=== PATIENT | female | born 1950 | race Caucasian/White ===

== ENCOUNTER 2016-10-27 13:43 | Observation (INO) | payer OTHER ==
[2016-10-27] MEDS ORDERED: NORMAL SALINE 500 ML IV ONE (13:58)
[2016-10-27] MEDS ORDERED: ONDANSETRON HCL INJ/PF 4 MG/2 ML SDV IV ONE (14:01)
--- NOTE | 2016-10-27 14:04 | ER Document Report ---
ED Medical Screen (RME) - General Chief Complaint: Nausea/Vomiting/Diarrhea Stated Complaint: NAUSEA TRAVEL OUTSIDE OF THE [place] IN LAST 30 DAYS: No - HPI Patient complains to provider of: nausea, Vomiting and diarrhea for 2 days Notes: 10/27/16 14:00 Diabetic female presents with now 2 days nausea vomiting diarrhea generalized malaise and weakness. Patient has been unable to tolerate anything by mouth. Patient states her sugars have been relatively well controlled for her not too high. Patient denies any fever, chills, chest pain, abdominal pain, leg swelling, dysuria - Related Data Allergies/Adverse Reactions: codeine [Codeine] Allergy (Unknown, Verified 10/27/16 13:48) Sulfa (Sulfonamide Antibiotics) Allergy (Unknown, Verified 10/27/16 13:48) Past Medical History - Social History Chew tobacco use (# tins/day): No Frequency of alcohol use: None Drug Abuse: None - Past Medical History Cardiac Medical History: Reports: Hx Hypertension Endocrine Medical History: Reports: Hx Diabetes Mellitus Type 2 Renal/ Medical History: Reports: Hx Kidney Stones. Denies: Hx Peritoneal Dialysis Past Surgical History: Reports: Hx Cholecystectomy, Hx Tonsillectomy Review of Systems - Review of Systems Gastrointestinal: Diarrhea, Nausea, Vomiting Physical Exam - Vital signs Vitals: Temp Pulse Resp BP Pulse Ox 99.7 F 122 H 20 130/84 H 93 10/27/16 13:48 10/27/16 13:48 10/27/16 13:48 10/27/16 13:48 10/27/16 13:48 - Respiratory Respiratory status: No respiratory distress Breath sounds: Normal - Cardiovascular Rhythm: Tachycardia - Abdominal Inspection: Normal Distension: No distension Bowel sounds: Normal Tenderness: Nontender Course - Vital Signs Vital signs: Temp Pulse Resp BP Pulse Ox 99.7 F 122 H 20 130/84 H 93 10/27/16 13:48 10/27/16 13:48 10/27/16 13:48 10/27/16 13:48 10/27/16 13:48
--- NOTE | 2016-10-27 14:47 | ER Document Report ---
ED GI/ - General Mode of Arrival: Ambulatory TRAVEL OUTSIDE OF THE [place] IN LAST 30 DAYS: No - HPI Patient complains to provider of: Diarrhea, Vomiting Onset: Other - Refer to HPI notes Associated symptoms: Lightheaded <FREDDIE COBOS - Last Filed: 10/27/16 15:27> <JEREMIAH JIM - Last Filed: 10/27/16 17:17> - General Chief Complaint: Nausea/Vomiting/Diarrhea Stated Complaint: NAUSEA Time Seen by Provider: 10/27/16 14:39 Notes: Patient is a 66 year old female presenting to the ED for nausea and vomiting. Patient states she started having snmptoms of nausea, chills, and possible fevers yesterday. Patient started vomiting today. Patient also complains of chronic diarrhea which was onset after her cholecystectomy. Patient denies any urinary symptoms or abdominal pain. Patient is a diabetic and states she took her blood glucose level this morning which was not too high but states her level after arriving here was high. Patient also states her blood pressure was 113/78 today. Patient has a history of diabetes mellitus, hypertension, tubal ligation, and cholecystectomy. Patient also had pancreatitis in 2010 which the cause was unfound. Patient is allergic to codeine and sulfa allergies. (FREDDIE COBOS) - Related Data Allergies/Adverse Reactions: codeine [Codeine] Allergy (Unknown, Verified 10/27/16 13:48) Sulfa (Sulfonamide Antibiotics) Allergy (Unknown, Verified 10/27/16 13:48) Home Medications: Current Home Medications Aspirin [Aspirin 81 mg Chewable Tablet] 81 mg PO DAILY 10/27/16 [History] Dulaglutide [Trulicity] 1.5 mg SQ Q7D 10/27/16 [History] Lisinopril/Hydrochlorothiazide [Lisinopril-Hctz 20-12.5 mg Tab] 1 tab PO DAILY 10/27/16 [History] Metformin HCl 500 mg PO TID 10/27/16 [History] Past Medical History - General Information source: Patient - Social History Smoking Status: Never Smoker Cigarette use (# per day): No Chew tobacco use (# tins/day): No Frequency of alcohol use: None Drug Abuse: None Family History: None Patient has suicidal ideation: No Patient has homicidal ideation: No - Past Medical History Cardiac Medical History: Reports: Hx Hypertension Endocrine Medical History: Reports: Hx Diabetes Mellitus Type 2 Renal/ Medical History: Reports: Hx Kidney Stones Past Surgical History: Reports: Hx Cholecystectomy, Hx Tonsillectomy, Hx Tubal Ligation <FREDDIE COBSO - Last Filed: 10/27/16 15:27> Review of Systems - Review of Systems Constitutional: See HPI, Chills, Fever EENT: No symptoms reported Cardiovascular: No symptoms reported Respiratory: No symptoms reported Gastrointestinal: See HPI, Abdominal pain, Diarrhea, Nausea, Vomiting Genitourinary: No symptoms reported Female Genitourinary: No symptoms reported Musculoskeletal: No symptoms reported Skin: No symptoms reported Hematologic/Lymphatic: No symptoms reported Neurological/Psychological: No symptoms reported -: Yes All other systems reviewed and negative <FREDDIE COBOS - Last Filed: 10/27/16 15:27> Physical Exam - Vital signs Interpretation: Normal <FREDDIE COBOS - Last Filed: 10/27/16 15:27> <JEREMIAH JIM - Last Filed: 10/27/16 17:17> - Vital signs Vitals: Temp Pulse Resp BP Pulse Ox 99.7 F 122 H 20 130/84 H 93 10/27/16 13:48 10/27/16 13:48 10/27/16 13:48 10/27/16 13:48 10/27/16 13:48 - Notes Notes: GENERAL: Alert, interacts well. No acute distress. HEAD: Normocephalic, atraumatic. EYES: Appear normal. Pupils equal, round, and reactive to light. ENT: Moist mucus membranes, tongue midline. NECK: Full range of motion. Supple. Trachea midline. LUNGS: Clear to auscultation bilaterally, no wheezes, rales, or rhonchi. No respiratory distress. HEART: Tachycardia. Regular rhythm. No murmurs, gallops, or rubs. ABDOMEN: Soft, non-tender. Non-distended. Decreased bowel sounds but present. EXTREMITIES: Moves all 4 extremities spontaneously. Normal strength. No edema. NEUROLOGICAL: Alert and oriented x3. Normal speech. No focal neurological deficits. GSC 15. PSYCH: Normal affect, normal mood. SKIN: Warm, dry, normal turgor. No rashes or lesions noted. (FREDDIE COBOS) Course - Laboratory Result Diagrams: 10/27/16 15:00 10/27/16 15:00 <FREDDIE COBOS - Last Filed: 10/27/16 15:27> - Laboratory Result Diagrams: 10/27/16 15:00 10/27/16 15:00 - EKG Interpretation by Ca EKG shows normal: Sinus rhythm, Elizabeth, Intervals, QRS Complexes, ST-T Waves Rate: Tachycardia - 109 Elizabeth/QRS: LAHB/LAFB Voltage: Consistant with LVH - Consults Dr. Prado Time consulted: 16:05 Consulted provider: will come to ER - Admit to telemetry <JEREMIAH JIM - Last Filed: 10/27/16 17:17> - Vital Signs Vital signs: Temp Pulse Resp BP Pulse Ox 97.9 F 122 H 20 100/50 L 93 10/27/16 17:01 10/27/16 13:48 10/27/16 17:09 10/27/16 17:11 10/27/16 17:09 - Laboratory Laboratory results interpreted by me: 10/27/16 10/27/16 10/27/16 14:11 14:25 15:00 WBC 16.8 H RDW 14.1 H Seg Neutrophils % 85.3 H Lymphocytes % 5.6 L Absolute Neutrophils 14.3 H Absolute Monocytes 1.5 H Glucose POC Glucose 192 H Magnesium Urine Ketones 20 H Urine Nitrite POSITIVE H Ur Leukocyte Esterase LARGE H 10/27/16 15:00 WBC RDW Seg Neutrophils % Lymphocytes % Absolute Neutrophils Absolute Monocytes Glucose 196 H POC Glucose Magnesium 1.4 L Urine Ketones Urine Nitrite Ur Leukocyte Esterase Discharge <FREDDIE COBOS - Last Filed: 10/27/16 15:27> - Discharge Admitting Provider: Hospitalist Unit Admitted: Telemetry <HERNÁNJEREMIAH - Last Filed: 10/27/16 17:17> - Discharge Clinical Impression: Tachycardia Urinary tract infection Qualifiers: Urinary tract infection type: site unspecified Hematuria presence: without hematuria Qualified Code(s): N39.0 - Urinary tract infection, site not specified Sepsis Qualifiers: Sepsis type: sepsis due to unspecified organism Qualified Code(s): A41.9 - Sepsis, unspecified organism Hypotension Qualifiers: Hypotension type: unspecified hypotension type Qualified Code(s): I95.9 - Hypotension, unspecified Nausea and vomiting Qualifiers: Vomiting type: unspecified Vomiting Intractability: non-intractable Qualified Code(s): R11.2 - Nausea with vomiting, unspecified Condition: Stable Disposition: ADMITTED INPATIENT Scribe Attestation: 10/27/16 17:17 I personally performed the services described in the documentation, reviewed and edited the documentation which was dictated to the scribe in my presence, and it accurately records my words and actions. (JEREMIAH JIM) Scribe Documentation - Scribe Written by Scribe:: Toyin Gross 10/27/16 15:28 acting as scribe for :: Hernán <FREDDIE COBOS - Last Filed: 10/27/16 15:27>
[2016-10-27 14:53] LABS: APPEARANCE,URINE CLOUDY; BILIRUBIN,URINE NEGATIVE (NEGATIVE); GLUCOSE, URINE NEGATIVE (NEGATIVE); KETONES,URINE 20 mg/dL (NEGATIVE); LEUKOCYTE ESTERASE,URINE LARGE (NEGATIVE); NITRITE,URINE POSITIVE (NEGATIVE); PROTEIN,URINE NEGATIVE (NEGATIVE); URINE SPECIFIC GRAVITY 1.014; UROBILINOGEN,URINE NEGATIVE mg/dL (<2.0)
[2016-10-27] MEDS ORDERED: CEFTRIAXONE 1 GM/D5W RTU 50 ML IV ONE (15:12)
--- NOTE | 2016-10-27 15:15 | EKG REPORT ---
SEVERITY:- ABNORMAL ECG - SINUS TACHYCARDIA LEFT ANTERIOR FASCICULAR BLOCK CONSIDER LEFT VENTRICULAR HYPERTROPHY : Confirmed by: Comfort Castle MD 27-Oct-2016 15:14:29
[2016-10-27 15:23] LABS: ABSOLUTE LYMPHOCYTES (AUTO) 0.9 10^3/uL (0.5-4.7); ABSOLUTE MONOCYTES (AUTO) 1.5 10^3/uL (0.1-1.4); ABSOLUTE NEUT (AUTO) 14.3 10^3/uL (1.7-8.2); BASOPHILS % (AUTO) 0.2 % (0-2); EOSINOPHILS % (AUTO) 0.1 % (0-6); HEMATOCRIT 39.7 % (36.0-47.0); HEMOGLOBIN 13.3 g/dL (12.0-15.5); HGB HCT DIFFERENCE 0.2; LYMPHOCYTES % (AUTO) 5.6 % (13-45); MEAN CORPUSCULAR HEMOGLOBIN 28.7 pg (27.0-33.4); MEAN CORPUSCULAR HGB CONC 33.5 g/dL (32.0-36.0); MEAN CORPUSCULAR VOLUME 86 fl (80-97); MONOCYTES % (AUTO) 8.8 % (3-13); RED BLOOD COUNT 4.64 10^6/uL (3.72-5.28); RED CELL DISTRIBUTION WIDTH 14.1 % (11.5-14.0); SEGMENTED NEUTROPHILS % (AUTO) 85.3 % (42-78); WHITE BLOOD COUNT 16.8 10^3/uL (4.0-10.5)
[2016-10-27 15:29] LABS: ALANINE AMINOTRANSFERASE 42 U/L (9-52); ALBUMIN 4.1 g/dL (3.5-5.0); ALKALINE PHOSPHATASE 85 U/L (38-126); ANION GAP 15 (5-19); ASPARTATE AMINO TRANSFERASE 31 U/L (14-36); BILIRUBIN,DIRECT 0.4 mg/dL (0.0-0.4); BILIRUBIN,TOTAL 0.8 mg/dL (0.2-1.3); BLOOD UREA NITROGEN 13 mg/dL (7-20); CALCIUM 9.1 mg/dL (8.4-10.2); CARBON DIOXIDE 23 mmol/L (22-30); CHLORIDE 100 mmol/L (98-107); CREATININE RESULT 0.81 mg/dL (0.52-1.25); GLUCOSE 196 mg/dL (75-110); MAGNESIUM 1.4 mg/dL (1.6-2.3); POTASSIUM 3.6 mmol/L (3.6-5.0); TOTAL PROTEIN 7.8 g/dL (6.3-8.2)
[2016-10-27] MEDS ORDERED: RINGERS SOLUTION,LACTATED 1,000 ML IV ONE (16:00)
[2016-10-27] MEDS ORDERED: ACETAMINOPHEN 325 MG TABLET PO PRN (16:47)
[2016-10-27] MEDS ORDERED: ONDANSETRON HCL INJ/PF 4 MG/2 ML SDV IV PRN (16:47)
[2016-10-27] MEDS ORDERED: NORMAL SALINE 1000 ML 1,000 ML IV PRN (16:47)
[2016-10-27] MEDS ORDERED: GLUCAGON,HUMAN RECOMB 1 MG INJ IM PRN (16:52)
[2016-10-27] MEDS ORDERED: DEXTROSE 50%-WATER 25 GM/50 ML DISP.SYRIN IV PRN ×2 (16:52)
[2016-10-27] MEDS ORDERED: DEXTROSE 40% GEL 15 GM TUBE PO PRN ×2 (16:52)
[2016-10-27] MEDS ORDERED: INSULIN LISPRO 100 UNIT/ML 3 ML VIAL SUBCUT PRN (16:52)
--- NOTE | 2016-10-27 17:01 | PDOC H&P ---
History of Present Illness Admission Date/PCP: 10/27/16 16:32 LEIGHA RASHEED MD Patient complains of: n/v History of Present Illness: ANGELY RIOS is a 66 year old female presents from home with sudden onset n/ v and worsening of her chronic diarrhea since last night with fevers and chills. she denies abdominal pain, rectal pain, dysuria, ondynophagia, chest pain, palpitations, rash, recent travels or sick contacts. she has hx of nephrolithiasis requiring lithotripsy 20yrs ago but none since that she can recall. she denies hematuria, melena, hematochezia. eval in ED shows transient tachycardia, leukocytosis and UA suggestive of UTI; we were asked to admit for further eval and management. Past Medical History Cardiac Medical History: Reports: Hypertension Endocrine Medical History: Reports: Diabetes Mellitus Type 2 Past Surgical History Past Surgical History: Reports: Cholecystectomy, Tonsillectomy, Tubal Ligation Social History Information Source: Patient Smoking Status: Never Smoker Frequency of Alcohol Use: None Hx Recreational Drug Use: No Hx Prescription Drug Abuse: No - Advance Directive Resuscitation Status: Full Code Family History Family History: None, Reviewed & Not Pertinent, DM, Malignancy - father has colon CA Parental Family History Reviewed: Yes Children Family History Reviewed: Yes Sibling(s) Family History Reviewed.: Yes Medication/Allergy Home Medications: Aspirin [Aspirin 81 mg Chewable Tablet] 81 mg PO DAILY 10/27/16 Dulaglutide [Trulicity] 1.5 mg SQ Q7D 10/27/16 Lisinopril/Hydrochlorothiazide [Lisinopril-Hctz 20-12.5 mg Tab] 1 tab PO DAILY 10/27/16 Metformin HCl 500 mg PO TID 10/27/16 Allergies/Adverse Reactions: codeine [Codeine] Allergy (Unknown, Verified 10/27/16 13:48) Sulfa (Sulfonamide Antibiotics) Allergy (Unknown, Verified 10/27/16 13:48) Review of Systems All systems: reviewed and no additional remarkable complaints except as stated - all systems reviewed, see HPI, remaining systems negative Physical Exam Vital Signs: Temp Pulse Resp BP Pulse Ox 99.7 F 122 H 20 112/65 93 10/27/16 13:48 10/27/16 13:48 10/27/16 16:01 10/27/16 16:01 10/27/16 16:01 General appearance: PRESENT: no acute distress, obese, well-developed, well- nourished Head exam: PRESENT: atraumatic, normocephalic Eye exam: PRESENT: EOMI. ABSENT: conjunctival injection, scleral icterus Mouth exam: PRESENT: moist, neck supple Neck exam: PRESENT: full ROM. ABSENT: tenderness Respiratory exam: PRESENT: clear to auscultation sheng. ABSENT: accessory muscle use Cardiovascular exam: PRESENT: RRR. ABSENT: systolic murmur Pulses: PRESENT: normal radial pulses, normal dorsalis pedis pul Vascular exam: PRESENT: normal capillary refill GI/Abdominal exam: PRESENT: normal bowel sounds, soft, tenderness - CVA tenderness and left flank pain over the lower pole of the kidney Extremities exam: ABSENT: calf tenderness, pedal edema Musculoskeletal exam: PRESENT: ambulatory, full ROM Neurological exam: PRESENT: alert, awake, oriented to person, oriented to place , oriented to time, oriented to situation Psychiatric exam: PRESENT: appropriate affect, normal mood Skin exam: PRESENT: dry, warm Results Laboratory Results: 10/27/16 15:00 10/27/16 15:00 MCV 86 fl (80-97) 10/27/16 15:00 MCH 28.7 pg (27.0-33.4) 10/27/16 15:00 MCHC 33.5 g/dL (32.0-36.0) 10/27/16 15:00 RDW 14.1 % (11.5-14.0) H 10/27/16 15:00 Seg Neutrophils % 85.3 % (42-78) H 10/27/16 15:00 Lymphocytes % 5.6 % (13-45) L 10/27/16 15:00 Monocytes % 8.8 % (3-13) 10/27/16 15:00 Eosinophils % 0.1 % (0-6) 10/27/16 15:00 Basophils % 0.2 % (0-2) 10/27/16 15:00 Absolute Neutrophils 14.3 10^3/uL (1.7-8.2) H 10/27/16 15:00 Absolute Lymphocytes 0.9 10^3/uL (0.5-4.7) 10/27/16 15:00 Absolute Monocytes 1.5 10^3/uL (0.1-1.4) H 10/27/16 15:00 Absolute Eosinophils 0.0 10^3/uL (0.0-0.6) 10/27/16 15:00 Absolute Basophils 0.0 10^3/uL (0.0-0.2) 10/27/16 15:00 Chloride 100 mmol/L (98-107) 10/27/16 15:00 Carbon Dioxide 23 mmol/L (22-30) 10/27/16 15:00 Anion Gap 15 (5-19) 10/27/16 15:00 Est GFR ( Amer) > 60 (>60) 10/27/16 15:00 Est GFR (Non-Af Amer) > 60 (>60) 10/27/16 15:00 Glucose 196 mg/dL (75-110) H 10/27/16 15:00 Calcium 9.1 mg/dL (8.4-10.2) 10/27/16 15:00 Magnesium 1.4 mg/dL (1.6-2.3) L 10/27/16 15:00 Total Bilirubin 0.8 mg/dL (0.2-1.3) 10/27/16 15:00 AST 31 U/L (14-36) 10/27/16 15:00 ALT 42 U/L (9-52) 10/27/16 15:00 Alkaline Phosphatase 85 U/L (38-126) 10/27/16 15:00 Total Protein 7.8 g/dL (6.3-8.2) 10/27/16 15:00 Albumin 4.1 g/dL (3.5-5.0) 10/27/16 15:00 Lipase 103.0 U/L (23-300) 10/27/16 15:00 Urine Color YELLOW 10/27/16 14:25 Urine Appearance CLOUDY 10/27/16 14:25 Urine pH 5.0 (5.0-9.0) 10/27/16 14:25 Ur Specific [place] 1.014 10/27/16 14:25 Urine Protein NEGATIVE mg/dL (NEGATIVE) 10/27/16 14:25 Urine Glucose (UA) NEGATIVE mg/dL (NEGATIVE) 10/27/16 14:25 Urine Ketones 20 mg/dL (NEGATIVE) H 10/27/16 14:25 Urine Blood NEGATIVE (NEGATIVE) 10/27/16 14:25 Urine Nitrite POSITIVE (NEGATIVE) H 10/27/16 14:25 Ur Leukocyte Esterase LARGE (NEGATIVE) H 10/27/16 14:25 Urine WBC (Auto) 54 /HPF 10/27/16 14:25 Urine RBC (Auto) 4 /HPF 10/27/16 14:25 Assessment & Plan - Diagnosis (1) Urinary tract infection Qualifiers: Urinary tract infection type: site unspecified Hematuria presence: without hematuria Qualified Code(s): N39.0 - Urinary tract infection, site not specified Is this a current diagnosis for this admission?: YesPlan: possible pyelonephritis with left flank pain and given hx of nephrolithiasis will send for ct stone survey. in meantime tx with empiric rocephin, IVFs and antiemetics and analgesics. f/u culx's (2) Nausea and vomiting Qualifiers: Vomiting type: unspecified Vomiting Intractability: non-intractable Qualified Code(s): R11.2 - Nausea with vomiting, unspecified Is this a current diagnosis for this admission?: YesPlan: resolved with IVFs and antiemetics, likely 2/2 UTI (3) Sepsis Qualifiers: Sepsis type: sepsis due to unspecified organism Qualified Code(s): A41.9 - Sepsis, unspecified organism Is this a current diagnosis for this admission?: YesPlan: resolved with IVFs and abx; continue same and monitor for recurrence. - Time Time Spent: 50 to 70 Minutes Medications reviewed and adjusted accordingly: Yes Anticipated discharge: Home Within: within 24 hours
--- NOTE | 2016-10-27 17:55 | RADIOLOGY REPORT (SQ) ---
EXAM DESCRIPTION: CT ABD/PELVIS NO ORAL OR IV COMPLETED DATE/TIME: 10/27/2016 5:19 pm REASON FOR STUDY: stone survey, hx of kidney stones, rt flank pain COMPARISON: 07/26/2010 TECHNIQUE: CT scan of the abdomen and pelvis performed without intravenous or oral contrast. Images reviewed with lung, soft tissue, and bone windows. Reconstructed coronal and sagittal MPR images revi ewed. All images stored on PACS. All CT scanners at this facility use dose modulation, iterative reconstruction, and/or weight based d osing when appropriate to reduce radiation dose to as low as reasonably achievable (ALARA). [facility]: Dose Right [facility]: CareDose [facility]: Dose Right [facility]: Teradose 4D [facility]: Smart Eye-Q RADIATION DOSE: Up-to-date CT equipment and radiation dose reduction techniques were employed. CTDIv ol: 20.3 mGy. DLP: 1106 mGy-cm.mGy. LIMITATIONS: None. FINDINGS: LOWER CHEST: No significant findings. No nodules or infiltrates. NON-CONTRASTED LIVER, SPLEEN, ADRENALS: Diffusely decreased attenuation of the liver, consistent with hepatic steatosis. No evidence of mass. PANCREAS: No masses. No peripancreatic inflammatory changes. GALLBLADDER: Surgically absent. RIGHT KIDNEY AND URETER: No suspicious masses. Assessment limited by lack of IV contrast. No signif icant calcifications. No hydronephrosis or hydroureter. LEFT KIDNEY AND URETER: Re- demonstration of a superior pole cyst with few mural opacification, not s ignificantly changed relative to 2011 imaging. No suspicious masses. Assessment limited by lack of I V contrast. No significant calcifications. No hydronephrosis or hydroureter. AORTA AND RETROPERITONEUM: No aneurysm. No retroperitoneal masses or adenopathy. BOWEL AND PERITONEAL CAVITY: Scattered sigmoid diverticula without acute infectious/ inflammatory german nge. APPENDIX: Not visualized. PELVIS, BLADDER, AND ABDOMINAL WALL:No abnormal masses. No free fluid. Bladder normal. BONES: No significant findings. OTHER: No other significant finding. IMPRESSION: No evidence of obstructive uropathy. Chronic and incidental findings as detailed above. TECHNICAL DOCUMENTATION: JOB ID: [id number] Quality ID # [id number]: Final reports with documentation of one or more dose reduction techniques (e.g., Au tomated exposure control, adjustment of the mA and/or kV according to patient size, use of iterative reconstruction technique) 2011 [employer]- All Rights Reserved
[2016-10-28 04:47] LABS: HEMATOCRIT 34.7 % (36.0-47.0); HEMOGLOBIN 11.5 g/dL (12.0-15.5); HGB HCT DIFFERENCE -0.2; MEAN CORPUSCULAR HEMOGLOBIN 28.5 pg (27.0-33.4); MEAN CORPUSCULAR HGB CONC 33.2 g/dL (32.0-36.0); MEAN CORPUSCULAR VOLUME 86 fl (80-97); RED BLOOD COUNT 4.04 10^6/uL (3.72-5.28); RED CELL DISTRIBUTION WIDTH 14.1 % (11.5-14.0); WHITE BLOOD COUNT 11.3 10^3/uL (4.0-10.5)
[2016-10-28 09:04] VITALS: BP 104/55
[2016-10-28] MEDS ORDERED: CEFTRIAXONE 1 GM/D5W RTU 50 ML IV SCH (10:00)
[2016-10-28] MEDS ORDERED: ENOXAPARIN SODIUM INJ 40 MG/0.4 ML DISP.SYRIN SUBCUT SCH (10:00)
--- NOTE | 2016-10-28 11:54 | PDOC DISCHARGE SUMMARY ---
General - Admit/Disc Date/PCP Admission Date/Primary Care Provider: 10/27/16 16:47 LEIGHA RASHEED MD Discharge Date: 10/28/16 - Discharge Diagnosis (1) Urinary tract infection Is this a current diagnosis for this admission?: YesSummary: while cultures are not resulted, she has rapidly improved with current abx and I think can transition home on similar oral regimen with instruction to f/u cultures herself or have her PCP do so on Saturday. return to the ED for worsening or recurrent symptoms. (2) Nausea and vomiting Is this a current diagnosis for this admission?: YesSummary: resolved (3) Sepsis Is this a current diagnosis for this admission?: YesSummary: resolved - Additional Information Resuscitation Status: Full Code Discharge Diet: As Tolerated, Diabetic Discharge Activity: Activity As Tolerated Home Medications: Aspirin [Aspirin 81 mg Chewable Tablet] 81 mg PO DAILY 10/27/16 Dulaglutide [Trulicity] 1.5 mg SQ Q7D 10/27/16 Lisinopril/Hydrochlorothiazide [Lisinopril-Hctz 20-12.5 mg Tab] 1 tab PO DAILY 10/27/16 Metformin HCl 500 mg PO TID 10/27/16 Acetaminophen [Tylenol 325 mg Tablet] 650 mg PO Q4HP PRN tablet 10/28/16 Cefpodoxime Proxetil 200 mg PO BID #14 tablet 10/28/16 Fluconazole [Diflucan 100 mg Tablet] 100 mg PO ONCE PRN #1 tablet 10/28/16 History of Present Illness Patient complains of: n/v, fevers, chills History of Present Illness: ANGELY RIOS is a 66 year old female presents from home with sudden onset n/ v and worsening of her chronic diarrhea since last night with fevers and chills. she denies abdominal pain, rectal pain, dysuria, ondynophagia, chest pain, palpitations, rash, recent travels or sick contacts. she has hx of nephrolithiasis requiring lithotripsy 20yrs ago but none since that she can recall. she denies hematuria, melena, hematochezia. eval in ED shows transient tachycardia, leukocytosis and UA suggestive of UTI; we were asked to admit for further eval and management. Hospital Course Hospital Course: admitted and placed on rocephin with marked improvement and resolution of most of her symptoms so much so that she is asking for discharge home. she is stable for d/c at this time. Physical Exam Vital Signs: Temp Pulse Resp BP Pulse Ox 99.0 F 93 20 104/55 L 97 10/28/16 09:03 10/28/16 09:03 10/28/16 09:03 10/28/16 09:03 10/28/16 09:03 Intake & Output 10/27/16 10/28/16 10/29/16 06:59 06:59 06:59 Intake Total 0 Balance 0 Weight 90.9 kg General appearance: PRESENT: no acute distress, obese, well-developed, well- nourished Mouth exam: PRESENT: moist Respiratory exam: PRESENT: clear to auscultation sheng GI/Abdominal exam: PRESENT: normal bowel sounds, soft. ABSENT: tenderness - CVA and flank pain resolved Musculoskeletal exam: PRESENT: ambulatory, full ROM Neurological exam: PRESENT: alert, awake, oriented to person, oriented to place , oriented to time Results Laboratory Results: 10/28/16 04:32 10/28/16 04:32 WBC 11.3 H RBC 4.04 Hgb 11.5 L Hct 34.7 L MCV 86 MCH 28.5 MCHC 33.2 RDW 14.1 H Plt Count 161 Impressions: Abdomen/Pelvis CT 10/27/16 00:00 IMPRESSION: No evidence of obstructive uropathy. Chronic and incidental findings as detailed above. Qualifiers PATEINT BEING DISCHARGED WITH ANY OF THE FOLLOWING DIAGNOSIS?: No VTE patient discharged on overlapping Therapy?: No Reason(s) for not prescribing Overlap Therapy:: Not indicated Plan Discharge Plan: d/c home with continued abx. f/u with PCP in one week or return to the ED for worsening condition. Time Spent: Greater than 30 Minutes
== END 2016-10-28 10:01 | disposition home or self-care (01) ==
LOC: ER 13:43 → UNDOADMIN 16:32 → EH 16:32 → INTOOBSV 16:47 → EH 16:47 → 5 17:44
PROVIDERS: ADMIT Family Medicine; ATTEND Family Medicine
DX: N39.0 Urinary tract infection, site not specified (principal); R11.2 Nausea with vomiting, unspecified; A41.9 Sepsis, unspecified organism; E11.9 Type 2 diabetes mellitus without complications; K52.9 Noninfective gastroenteritis and colitis, unspecified; I10 Essential (primary) hypertension; Z79.82 Long term (current) use of aspirin; Z79.84 Long term (current) use of oral hypoglycemic drugs; Z98.51 Tubal ligation status; Z87.19 Personal history of other diseases of the digestive system; Z87.442 Personal history of urinary calculi; Z98.890 Other specified postprocedural states; Z80.0 Family history of malignant neoplasm of digestive organs
CPT/HCPCS: 93005; 99285; 96375; 96365; 36415 ×2; 87040; 87086; 82962 ×2; 83690; 83735; 85025; 85027; 87088; 80053; 81001; 87186; 74176; 93010; G0378 ×3; J1815; J3490; J2405; J7040; J7120; J0696

== ENCOUNTER 2017-03-15 07:04 | Day surgery (SDC) | payer OTHER ==
[2017-03-01 11:48] LABS: HEMOGLOBIN 13.9 g/dL (12.0-15.5); HGB HCT DIFFERENCE 0.7; MEAN CORPUSCULAR HEMOGLOBIN 28.6 pg (27.0-33.4); MEAN CORPUSCULAR VOLUME 84 fl (80-97); RED BLOOD COUNT 4.87 10^6/uL (3.72-5.28); RED CELL DISTRIBUTION WIDTH 14.7 % (11.5-14.0); WHITE BLOOD COUNT 8.1 10^3/uL (4.0-10.5)
[~2017-03-15 07:04] MED LIST: CEFAZOLIN 1 GM/D5W RTU 1 GM/50 ML RTUPB IV PRN; LACTATED RINGERS 1000 ML IV PRN; LIDOCAINE 0.5% INJ-PF (5 MG/ML) 50 ML SDV SUBCUT PRN
[2017-03-15] MEDS ORDERED: LIDOCAINE 1%/EPINEPHRINE INJ 20 ML VIAL ONE (07:45)
[2017-03-15 08:34] LABS: POTASSIUM 3.9 mmol/L (3.6-5.0)
[2017-03-15] MEDS ORDERED: FENTANYL CITRATE INJ/PF 100 MCG/2 ML AMPUL ONE ×2 (08:34)
[2017-03-15] MEDS ORDERED: PROPOFOL INJ 200 MG/20 ML VIAL IV ONE (08:35)
[2017-03-15] MEDS ORDERED: MIDAZOLAM 2 MG/2 ML INJ ONE (08:35)
[2017-03-15] MEDS ORDERED: LIDOCAINE 1% INJ-PF (10 MG/ML) 30 ML SDV ONE (08:38)
[2017-03-15] MEDS ORDERED: KETAMINE HCL INJ 500 MG/10 ML VIAL ONE (08:41)
[2017-03-15] MEDS ORDERED: MEPERIDINE HCL/PF INJ 25 MG/1 ML DISP.SYRIN IV PRN (09:01)
[2017-03-15] MEDS ORDERED: FENTANYL CITRATE INJ/PF 100 MCG/2 ML AMPUL IV PRN (09:01)
[2017-03-15] MEDS ORDERED: DIPHENHYDRAMINE HCL 50 MG/ML VIAL IV PRN (09:01)
[2017-03-15] MEDS ORDERED: MORPHINE SULFATE 10 MG/ML INJ IV PRN (09:01)
[2017-03-15] MEDS ORDERED: PROMETHAZINE HCL INJ 25 MG/1 ML VIAL IV PRN (09:01)
--- NOTE | 2017-03-15 09:47 | PDOC DISCHARGE SUMMARY ---
Discharge Summary (SDC) - Discharge Final Diagnosis: 1. Hemangioma left lip 2. Sebaceous cyst of the upper back Date of Surgery: 03/15/17 Discharge Date: 03/15/17 Condition: Good Treatment or Instructions: Patient to gargle with mouth rinse: To return to [place] [facility] in 1-2 weeks for suture removal; remove back dressing in 48 hours. Patient to take Toradol as needed pain. She may shower in 48 hours. Prescriptions: Ketorolac Tromethamine [Toradol 10 mg Tablet] 10 mg PO Q6HP PRN #10 tablet PRN Reason: Referrals: LEIGHA RASHEED MD [Primary Care Provider] - Discharge Diet: As Tolerated Discharge Activity: Activity As Tolerated Home Care Assistance: None Needed Report the Following to Your Physician Immediately: Shortness of Breath, Increase in Pain, Fever over 101 Degrees
--- NOTE | 2017-03-15 09:54 | Operative Report ---
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 2. Sebaceous cyst of the back POSTOPERATIVE DIAGNOSIS: Same OPERATION: 1. Excision of left lower lip venous malformation with primary closure. 2. Complete excision of upper back sebaceous cyst SURGEON: LEIGHA HERMOSILLO ANESTHESIA: LMAC TISSUE REMOVED OR ALTERED: Lesion from left sent to pathology; upper back lesion disposed of COMPLICATIONS: None ESTIMATED BLOOD LOSS: Minimal INTRAOPERATIVE FINDINGS: See below PROCEDURE: Patient was seen in the preop area with the left lip and upper back were marked. She was then taken to the main operating room and [facility] left in supine position arms tucked, LMAC anesthesia induced. Nasal cannula oxygen delivery. Left lip mouth prepped with Betadine surgical plan surgical timeout conducted. The findings are significant for 8 mm x 0.5 cm oblong shaped venous malformation possible angioma with no violation of the mucosa. The lesion was strictly confined to the submucosal tissue. Pin was anesthetized with plain lidocaine 27-gauge needle. The optical excisional biopsy was then performed of the overlying some, and the subcutaneous spongy venous lesion. The anterior extent of the elliptical incision across the vermilion specimen was sent to pathology for permanent analysis. The wound was closed with one continuous suture of 4-0 chromic. The closed wound was hemostatic and there was no hematoma. We now rotated the patient into the right lateral decubitus position left side up with adequate support. The upper back lesion was prepped and draped in sterile fashion. A second timeout was conducted. 1% plain lidocaine, an elliptical incision was made with a #10 blade, and using a 15 blade, the underlying attached sebaceous cyst was dissected out in its entirety. The specimen was disposed of. Wound cavity checked for bleeders and a few small spots were cauterized. Closed in layers with 3-0 Vicryl and 4-0 Ethilon suture patient tolerated procedure well, taken to recovery room stable condition.
[2017-03-15 12:19] VITALS: BP 143/78
== END 2017-03-15 11:35 | disposition home or self-care (01) ==
LOC: OROUT 07:04
PROVIDERS: ATTEND Surgery
PROC: 0HQ6XZZ Repair Back Skin, External Approach (ICD-10-PCS; 2017-03-15)
PROC: 0HB6XZZ Excision of Back Skin, External Approach (ICD-10-PCS; 2017-03-15)
PROC: 0CB10ZX Excision of Lower Lip, Open Approach, Diagnostic (ICD-10-PCS; principal; 2017-03-15 09:00)
DX: D18.09 Hemangioma of other sites (principal); L72.3 Sebaceous cyst; E11.9 Type 2 diabetes mellitus without complications; J45.909 Unspecified asthma, uncomplicated; I10 Essential (primary) hypertension; Z88.2 Allergy status to sulfonamides; Z79.899 Other long term (current) drug therapy; Z79.84 Long term (current) use of oral hypoglycemic drugs; Z79.82 Long term (current) use of aspirin
CPT/HCPCS: 36415 ×2; 82947; 84132; 85027; 88305 ×2; 11441; 11402; 12031; J2250; J0690; J3010; J3490; J2704; 300

== ENCOUNTER 2019-03-13 08:07 | Day surgery (SDC) | payer MEDICARE, OTHER ==
[~2019-03-13 08:07] MED LIST changes: -CEFAZOLIN 1 GM/D5W RTU 1 GM/50 ML RTUPB IV PRN; +FENTANYL CITRATE INJ/PF 100 MCG/2 ML AMPUL ONE; +KETOROLAC TROMETHAMINE 0.45% 4 DROP/0.4 ML DROPERETTE OS PRN; -LACTATED RINGERS 1000 ML IV PRN; -LIDOCAINE 0.5% INJ-PF (5 MG/ML) 50 ML SDV SUBCUT PRN; +MIDAZOLAM 2 MG/2 ML INJ ONE; +ONDANSETRON HCL INJ/PF 4 MG/2 ML SDV ONE
[2019-03-13] MEDS: TETRACAINE HCL 0.5% OPH SOLN 4 ML OS PRN ×3 (09:07→09:56)
[2019-03-13] MEDS: TROPICAMIDE 1% OPH SOLN 15 ML OS PRN ×3 (09:07→09:27)
[2019-03-13] MEDS: BESIFLOXACIN HCL 0.6% OPH SUSP 5 ML BOTTLE OS PRN ×4 (09:08→10:30)
[2019-03-13] MEDS: CYCLOPENTOLATE 0.2%/PHENYLEPHRINE 1% OPH SOLN 2 ML OS PRN ×3 (09:08→09:27)
[2019-03-13] MEDS: LIDOCAINE 4% INJ/PF (40 MG/ML) 5 ML AMPUL OS PRN ×2 (10:05)
[2019-03-13] MEDS: BUPIVACAINE HCL 0.75% INJ/PF (7.5 MG/1 ML) 10 ML SDV OS PRN ×2 (10:05)
[2019-03-13] MEDS: EPINEPHRINE INJ/PF 1 MG/1 ML AMPULE ONE ×2 (10:18)
[2019-03-13] MEDS: CHONDR SU A NA/HYALUR INTRAOC KIT (SURGICARE) ONE ×2 (10:18)
[2019-03-13] MEDS: LIDOCAINE 1% INJ-PF (10 MG/ML) 30 ML SDV ONE ×2 (10:18)
[2019-03-13] MEDS: DORZOLAMIDE HCL 2%/TIMOLOL MALEAT 0.5% OPH SOLN 10 ML OS PRN ×2 (10:30)
--- NOTE | 2019-03-13 11:31 | Operative Report ---
Operative Report-[facility] Operative Report: DATE OF SURGERY: 03/13/2019 PREOPERATIVE DIAGNOSIS: CATARACT, LEFT EYE. POSTOPERATIVE DIAGNOSIS: CATARACT, LEFT EYE. PROCEDURE PERFORMED: PHACOEMULSIFICATION WITH POSTERIOR CHAMBER INTRAOCULAR LENS, LEFT EYE. Intraocular Lens Model : ZCBOO 17.0 Total Phaco Time: 15.63 CDE SURGEON: RAVIN PERRY MD ANESTHESIA: TOPICAL WITH MAC. INDICATIONS FOR SURGERY: Difficultly driving at night PROCEDURE: The patient was brought to the Operating Room and placed on the operative table. Following tetracaine drops, topical anesthesia was administered. This consisted of instrument wipe pledgets soaked in a solution of 4% Xylocaine mixed with 0.75% Marcaine in a 1:2 ratio. A 2 x 1 cm pledget was placed in the superior fornix. A 1 x 1 cm pledget was placed in the inferior fornix. The eye was patched shut for 5 minutes. The patch was removed. The eye was sterilely prepped and draped in the usual manner. Lid speculum was placed in the eye. The pledgets were removed. 4-0 black silk sutures were placed around the superior and the inferior rectus muscles to be used as traction. A conjunctival peritomy was made at the 10 o'clock position. Hemostasis was obtained with bipolar cautery. A posterior limbal groove was created using a crescent knife and dissected anteriorly towards the cornea. A sharp point blade was used to create a paracentesis site at the 2 o'clock position. 0.2 cc non preserved Lidocaine was injected into the anterior chamber. A 2.4 mm keratome was used to enter the anterior chamber through the groove. Viscoelastic was injected into the anterior chamber. An anterior capsulotomy was performed using Utrata forceps in a capsulorrhexis fashion. Hydrodissection and hydrodelineation were performed. Phacoemulsification was performed in [id number] technique. Following this, the I/A unit was used to remove residual cortex. Viscoelastic was injected into the capsular bag. The Intraocular lens was placed in the capsular bag. The I/A unit was used to remove residual viscoelastic. The wound was seen to be watertight under high and low pressure, and no sutures were placed. The intraocular lens was well centered. The pressure was adjusted in the eye to normal pressure. The 4-0 black silk sutures and lid speculum were removed. The eye was shielded after Besivance and Cosopt drops were placed. The patient tolerated the procedure well and was sent to the Recovery Room in good condition.
== END 2019-03-13 11:20 | disposition home or self-care (01) ==
LOC: SC 08:07
PROVIDERS: ATTEND Ophthalmology
DX: H25.813 Combined forms of age-related cataract, bilateral (principal); E11.3293 Type 2 diabetes mellitus with mild nonproliferative diabetic retinopathy without macular edema, bilateral; H40.023 Open angle with borderline findings, high risk, bilateral; J45.909 Unspecified asthma, uncomplicated; I10 Essential (primary) hypertension; Z79.84 Long term (current) use of oral hypoglycemic drugs; Z79.82 Long term (current) use of aspirin; Z79.899 Other long term (current) drug therapy; E66.9 Obesity, unspecified
CPT/HCPCS: 66984; 82962; V2632; J2250; J3490 ×5; A9270; J0171; J3010; J2405; 142

== ENCOUNTER 2019-04-14 08:14 | Day surgery (SDC) | payer MEDICARE ==
[~2019-04-14 08:14] MED LIST changes: +BUPIVACAINE HCL 0.75% INJ/PF (7.5 MG/1 ML) 10 ML SDV OD PRN; +CHONDR SU A NA/HYALUR INTRAOC KIT (SURGICARE) ONE; +EPINEPHRINE INJ/PF 1 MG/1 ML AMPULE ONE; -FENTANYL CITRATE INJ/PF 100 MCG/2 ML AMPUL ONE; +KETOROLAC TROMETHAMINE 0.45% 4 DROP/0.4 ML DROPERETTE OD PRN; -KETOROLAC TROMETHAMINE 0.45% 4 DROP/0.4 ML DROPERETTE OS PRN; +LIDOCAINE 1% INJ-PF (10 MG/ML) 30 ML SDV ONE; +LIDOCAINE 4% INJ/PF (40 MG/ML) 5 ML AMPUL OD PRN; -MIDAZOLAM 2 MG/2 ML INJ ONE; -ONDANSETRON HCL INJ/PF 4 MG/2 ML SDV ONE
[2019-04-14] MEDS: CYCLOPENTOLATE 0.2%/PHENYLEPHRINE 1% OPH SOLN 2 ML OD PRN ×3 (08:53→09:14)
[2019-04-14] MEDS: BESIFLOXACIN HCL 0.6% OPH SUSP 5 ML BOTTLE OD PRN ×4 (08:53→09:50)
[2019-04-14] MEDS: TETRACAINE HCL 0.5% OPH SOLN 4 ML OD PRN ×3 (08:53→09:25)
[2019-04-14] MEDS: TROPICAMIDE 1% OPH SOLN 15 ML OD PRN ×3 (08:53→09:14)
[2019-04-14] MEDS ORDERED: MIDAZOLAM 2 MG/2 ML INJ ONE (09:00)
[2019-04-14] MEDS: DORZOLAMIDE HCL 2%/TIMOLOL MALEAT 0.5% OPH SOLN 10 ML OD PRN ×2 (09:50)
--- NOTE | 2019-04-14 13:37 | Operative Report ---
Operative Report-[facility] Operative Report: DATE OF SURGERY: 04/14/2019 PREOPERATIVE DIAGNOSIS: CATARACT, RIGHT EYE. POSTOPERATIVE DIAGNOSIS: CATARACT, RIGHT EYE. PROCEDURE PERFORMED: PHACOEMULSIFICATION WITH POSTERIOR CHAMBER INTRAOCULAR LENS, RIGHT EYE. Intraocular Lens Model : ZCBOO 18.5 Total Phaco Time: 17.43 CDE SURGEON: RAVIN PERRY MD ANESTHESIA: TOPICAL WITH MAC. INDICATIONS FOR SURGERY: Difficulty reading road signs and small print. PROCEDURE: The patient was brought to the Operating Room and placed on the operative table. Following tetracaine drops, topical anesthesia was administered. This consisted of instrument wipe pledgets soaked in a solution of 4% Xylocaine mixed with 0.75% Marcaine in a 1:2 ratio. A 2 x 1 cm pledget was placed in the superior fornix. A 1 x 1 cm pledget was placed in the inferior fornix. The eye was patched shut for 5 minutes. The patch was removed. The eye was sterilely prepped and draped in the usual manner. Lid speculum was placed in the eye. The pledgets were removed. 4-0 black silk sutures were placed around the superior and the inferior rectus muscles to be used as traction. A conjunctival peritomy was made at the 10 o'clock position. Hemostasis was obtained with bipolar cautery. A posterior limbal groove was created using a crescent knife and dissected anteriorly towards the cornea. A sharp point blade was used to create a paracentesis site at the 2 o'clock position. 0.2 cc non preserved Lidocaine was injected into the anterior chamber. A 2.4 mm keratome was used to enter the anterior chamber through the groove. Viscoelastic was injected into the anterior chamber. An anterior capsulotomy was performed using Utrata forceps in a capsulorrhexis fashion. Hydrodissection and hydrodelineation were performed. Phacoemulsification was performed in [id number] technique. Following this, the I/A unit was used to remove residual cortex. Viscoelastic was injected into the capsular bag. The Intraocular lens was placed in the capsular bag. The I/A unit was used to remove residual viscoelastic. The wound was seen to be watertight under high and low pressure, and no sutures were placed. The intraocular lens was well centered. The pressure was adjusted in the eye to normal pressure. The 4-0 black silk sutures and lid speculum were removed. The eye was shielded after Besivance and Cosopt drops were placed. The patient tolerated the procedure well and was sent to the Recovery Room in good condition.
== END 2019-04-14 10:53 | disposition home or self-care (01) ==
LOC: SC 08:14
PROVIDERS: ATTEND Ophthalmology
DX: H25.811 Combined forms of age-related cataract, right eye (principal); Z96.1 Presence of intraocular lens; J45.909 Unspecified asthma, uncomplicated; I10 Essential (primary) hypertension; E11.9 Type 2 diabetes mellitus without complications; Z79.84 Long term (current) use of oral hypoglycemic drugs; Z79.899 Other long term (current) drug therapy; E66.9 Obesity, unspecified; Z88.2 Allergy status to sulfonamides; Z88.5 Allergy status to narcotic agent; Z79.82 Long term (current) use of aspirin
CPT/HCPCS: 66984; 82962; 00142; V2632; J2250; J3490 ×5; A9270; J0171; 142